=== PATIENT | male | born 1995 | race African-American/Black ===

== ENCOUNTER 2017-03-07 11:17 | Emergency (ER) | payer OTHER ==
[~2017-03-07] VITALS: Ht 182.9 cm; Wt 104.3 kg
[2017-03-07] MEDS ORDERED: UNICOMPLEX M TA1 TA1 PO (11:29)
[2017-03-07] MEDS ORDERED: MOBIC15 MG PO (13:02)
[2017-03-07] MEDS ORDERED: FLEXERIL PO (13:02)
[2017-03-07 13:19] VITALS: BP 130/79
== END 2017-03-07 13:20 | disposition home or self-care (01) ==
LOC: ER 11:17
DX: S22.41XA Multiple fractures of ribs, right side, initial encounter for closed fracture (principal); M25.511 Pain in right shoulder; F12.10 Cannabis abuse, uncomplicated; V49.9XXA Car occupant (driver) (passenger) injured in unspecified traffic accident, initial encounter; Y93.89 Activity, other specified; Y92.89 Other specified places as the place of occurrence of the external cause; Y99.8 Other external cause status